=== PATIENT | male | born 1955 | race Caucasian/White ===

== ENCOUNTER → 2017-11-01 | Outpatient (CLI) | payer OTHER ==
[~2017-11-01] MED LIST: ASPIR 8181 M1 PO; ATORVASTATIN CA40 MG PO; CARDIZEM CD120 MG PO; CARVEDILOL25 MG PO; FLAX SEED OIL1000 MG PO; LISINOPRIL20 MG PO; MOBIC15 MG PO; PRILOSEC OTC20 MG PO; VITAMIN D1000 UNI1 PO
--- NOTE | 2017-11-14 14:05 | PAINCON ---
[address] [address] PAIN MANAGEMENT CONSULTATION Name: ATA LEMOS Leonie Room: [facility].#: [id number] Admission: 11/01/17 Attend Phys: Reyes Vásquez MD Discharge: Date of : 53 Report #: [id number] THIS REPORT FOR: //name// CC: Irma Vásquez DATE OF SERVICE: 11/01/2017 CHIEF COMPLAINT: Bilateral knee pain. HISTORY OF PRESENT ILLNESS: The patient is a 62-year-old gentleman, who has been seen in the pain clinic in the past because of lumbar radiculopathy. He has undergone epidural steroid injections and gleaned benefits from those. At this juncture, he returns indicating that he has been having pain and discomfort in his knees bilaterally. He has undergone epidural knee injections by Dr. Carreno in the past and found them efficacious. 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 He is a member of the [employer]. He is going to be there for the week with the kids. He would like to have his knees injected, given that he is having pain, particularly on the left side, which is more problematic than the right. ALLERGIES: No known drug allergies. CURRENT MEDICATIONS: Aspirin 81 mg, Coreg 25 mg b.i.d., vitamin D 1000 units daily, diltiazem 120 mg, flaxseed oil 1000 mg capsule, lisinopril 20 mg daily, Prilosec 20 mg. Medications used in the past, meloxicam 15 mg daily, Lipitor 40 mg. PAIN CLINIC ASSESSMENT: 1. The patient does have osteoarthritic changes in his knees and has some low back problems as well. 2. Height 6 feet, weight 252 pounds, BMI is 34. 3. Vital Signs: Blood pressure 137/97, heart rate 63, respiratory rate 16, room air saturation 98%, temperature 97.8. 4. Pain intensity left knee 7/10, right knee, 5/10. 5. Fall risk. The patient has not fallen in the last 3 months. 6. Blood thinner. The patient is not on a blood thinning agent. 7. History of hypertension. The patient is being treated for hypertension. 8. Opioid therapy greater than 6 weeks. The patient is not being treated with opioid therapy on a regular basis. 9. Risk assessment tool. 10. Functional assessment tool. 11. Recreational drug use. The patient denies use of recreational drugs. 12. Tobacco: The patient denies use of tobacco. 13. Alcohol: The patient denies [place] [address] PAIN MANAGEMENT CONSULTATION Name: ATA LEMOS Room: [facility]#: [id number] Admission: 11/01/17 Attend Phys: Reyes Vásquez MD Discharge: Date of : 53 Report #: [id number] PHYSICAL EXAMINATION: GENERAL: The patient is a well-developed, well-nourished white male. Appears his stated age. He is alert and oriented x 3. Speech is fluent. Affect is appropriate. HEENT: Normocephalic, atraumatic. Extraocular eye muscles intact. Sclerae nonicteric. Hearing within normal limits. Mucous membranes are moist. NECK: Without JVD or adenopathy. Good range of motion. HEART: Regular rate. S1, S2. LUNGS: Clear to auscultation without rhonchi or rales. MUSCULOSKELETAL: Without significant scoliosis, kyphosis or lordosis. Upper extremity muscle strength is judged to be 5/5 for the major muscle groups in the upper extremity without sensory changes. Lower extremity, the patient has some pain in his knees bilaterally, left side greater than right. Muscle bulk and symmetry is within normal limits. IMPRESSION: 1. Bilateral knee pain/osteoarthritis involving the knees. 2. Symptomatic lumbar radiculopathy history. 3. Spinal stenosis of lumbar spine. 4. Displacement of lumbar intervertebral disk with radiculopathy. 5. Lumbosacral spondylosis with radiculopathy. 6. Right and left knee pain, chronic. 7. Chronic intractable pain. RECOMMENDATIONS: We discussed treatment options with the patient. The patient states that he is going to go to a [employer] meeting over the next week. We would like to have his knees injected, given that he is going to be outside and quite active. Risks and benefits of the procedure were discussed with the patient that includes but not limited to infection, worsening of pain, no improvement in pain, infection. The patient elects to proceed. PROCEDURE NOTE: The patient was taken to the exam room. He was then assisted in getting on the bed. The patient was placed in the supine position. A pillow was placed under his knees to increase passage under the patellar ligament. The area lateral to the patella was prepped and draped in an aseptic technique using chlorhexidine solution. It was washed allowed to dry and washed a second time. An incision point had been placed prior to the knee being addressed. This area was then provided with a skin wheal. A 27-gauge needle using 1 mL of 0.5% bupivacaine was injected. A 25-gauge 2-inch needle was then advanced in a cephalomedial direction entering the knee joint at the lateral edge. Needle was advanced into the joint without complication. Negative aspiration was noted for heme, 4 mL of 0.5% bupivacaine and 40 mg triamcinolone was injected. The patient tolerated it well. There were no motor deficits or complaint at the end of [place] [address] PAIN MANAGEMENT CONSULTATION Name: CANELOATA R Room: [facility]#: [id number] Admission: 11/01/17 Attend Phys: Reyes Vásquez MD Discharge: Date of : 53 Report #: [id number] The contralateral left side was then draped and treated in a like fashion. A pillow had been placed under the left knee. This area was sterilely prepped with a chlorhexidine solution and allowed to dry. A second chlorhexidine solution was then applied and allowed to dry. A 27-gauge needle was then advanced into the appropriate site on the lateral superior border of the knee. A skin wheal was placed with 1 mL of 0.5% bupivacaine. A 25-gauge needle was then advanced into the knee using a cephalomedial direction. After appropriate advanced into the joint without complication, negative aspiration was noted for heme. A total of 4 mL of 0.5% bupivacaine and 40 mg triamcinolone was injected into the area. There were no complications. The area was then sterilely bandaged. The patient was then taken to the recovery room where he remained for an appropriate amount of time. We would like to thank you for letting us participate in his care. We hope he continues to improve and enjoys his a week out of doors with the [facility] [employer] one of which is his grandson. <ELECTRONICALLY SIGNED> By: Reyes Vásquez MD 11/14/17 [id number]. Akhil Vásquez MD /nt
== END | disposition home or self-care (01) ==
LOC: M.PC 00:51
DX: M17.0 Bilateral primary osteoarthritis of knee (principal); G89.29 Other chronic pain; M25.561 Pain in right knee; M25.562 Pain in left knee; M48.061 Spinal stenosis, lumbar region without neurogenic claudication; M51.16 Intervertebral disc disorders with radiculopathy, lumbar region; M47.27 Other spondylosis with radiculopathy, lumbosacral region; Z79.82 Long term (current) use of aspirin; Z79.899 Other long term (current) drug therapy; Z88.0 Allergy status to penicillin

== ENCOUNTER 2020-07-24 17:22 | Emergency (ER) | payer OTHER ==
[~2020-07-24] VITALS: Ht 182.9 cm; Wt 113.4 kg
[2020-07-24] MEDS ORDERED: APAP W/CODEINE1 TA2 PO (18:15)
[2020-07-24 18:24] VITALS: BP 156/95
== END 2020-07-24 18:25 | disposition home or self-care (01) ==
LOC: M.ERS 17:22
DX: S92.332A Displaced fracture of third metatarsal bone, left foot, initial encounter for closed fracture (principal); I10 Essential (primary) hypertension; E78.00 Pure hypercholesterolemia, unspecified; K21.9 Gastro-esophageal reflux disease without esophagitis; Z85.828 Personal history of other malignant neoplasm of skin; Z95.5 Presence of coronary angioplasty implant and graft; Z88.0 Allergy status to penicillin; W22.8XXA Striking against or struck by other objects, initial encounter; Y93.89 Activity, other specified; Y92.89 Other specified places as the place of occurrence of the external cause; Y99.8 Other external cause status